=== PATIENT | male | born 1950 | race Caucasian/White ===

== ENCOUNTER → 2016-12-02 | Outpatient (CLI) | payer BC ==
[~2016-12-02] VITALS: Ht 185.4 cm; Wt 110.3 kg
[~2016-12-02] MED LIST: AMLODIPINE PO; ASPI-232 PO; ATOR-24 PO; CEFAZOLIN 2000 MG/60 ML D5W 60 ML IV SCH; GLC/500 PO; HYDROCHLOROTHIAZIDE PO; LACTATED RINGER'S 1000ML 1,000 ML IV SCH; MULT-506 PO; NAPR1TAB9 PO; OLMESARTAN PO
[2016-12-02 08:33] VITALS: Ht 185.4 cm; Wt 110.3 kg
--- NOTE | 2016-12-02 09:07 | PAT Medication Instructions ---
Service Date Dec 02, 2016. Current Home Medication List Aspirin (Aspir-81), 1 TAB PO QAM Atorvastatin (Lipitor), 40 MG PO HS Metformin Hcl (Glucophage), 500 MG PO QAM Multivitamin (Multivitamin), 1 TAB PO QAM Naproxen (Aleve), 440 MG PO PRN [Olmesartan/Amlo/Hctz], 1 TAB PO QAM Medication Instructions For Your Scheduled Surgery Aspirin (Aspir-81), 1 TAB PO QAM (check with surgeon/cardiology for instructions ) Naproxen (Aleve), 440 MG PO PRN (check with surgeon for instructions) - Hold the following medications 48 hours prior to surgery: Metformin Hcl (Glucophage), 500 MG PO QAM - Hold the following medications the morning of surgery: [Olmesartan/Amlo/Hctz], 1 TAB PO QAM Multivitamin (Multivitamin), 1 TAB PO QAM - Take the following medications as scheduled the night before surgery: Atorvastatin (Lipitor), 40 MG PO HS If you have any questions please call us at [phone] (Nannette Galo PA-C) or [phone] or [phone]
[2016-12-02 09:47] LABS: URINE APPEARANCE CLEAR (CLEAR); URINE BILIRUBIN NEG (NEG); URINE COLOR YELLOW; URINE NITRITE NEG (NEG); URINE SPECIFIC GRAVITY 1.019 (1.000-1.030); UROBILINOGEN NEG (NEG); ZZUR CULT IF INDIC CLEAN CATCH NO
[2016-12-02 09:47] LABS: BASO % 0.5 %; BASO ABS # 0.05 K/uL (0-0.2); COMPLETE YES; EOS % 3.4 %; HEMATOCRIT 41.1 % (42-52); IG% 0.6 %; LYMPH ABS # 1.31 K/uL (1.2-3.4); MEAN CELL VOLUME 83.5 fL (80-100); MEAN CORPUSCULAR HEMOGLOBIN 28.5 pg (25-34); MEAN CORPUSCULAR HGB CONC 34.1 g/dl (32-36); NEUT % 74.5 %; PLATELET COUNT 223 K/uL (130-400); RED BLOOD COUNT 4.92 M/uL (4.7-6.1); WHITE BLOOD COUNT 10.08 K/uL (4.8-10.8)
[2016-12-02 09:50] LABS: MANUAL MICROSCOPIC REQUIRED? NO; REVIEW REQ? NO
[2016-12-02 09:56] LABS: INR 0.9 (0.9-1.1); PARTIAL THROMBOPLASTIN RATIO 0.9
[2016-12-02 10:23] LABS: BUN/CREATININE RATIO 17.4 (10-20); CALCIUM 8.6 mg/dl (8.5-10.1); CREATININE 1.1 mg/dl (0.60-1.40); POTASSIUM 3.9 mmol/L (3.5-5.1)
== END | disposition home or self-care (01) ==
LOC: C.LAB 11-28 08:00 → EDSTATUS 12-10 14:58
PROVIDERS: ATTEND Orthopaedic Surgery Sports Medicine
DX: Z01.818 Encounter for other preprocedural examination (principal)

== ENCOUNTER → 2016-12-10 | Outpatient (CLI) | payer BC ==
[~2016-12-10] MED LIST changes: -CEFAZOLIN 2000 MG/60 ML D5W 60 ML IV SCH; -LACTATED RINGER'S 1000ML 1,000 ML IV SCH
[2016-12-10 14:01] LABS: ESTIMATED AVERAGE GLUCOSE 237 mg/dl; HA1C FLAG Normal (Normal)
[2016-12-10 14:02] LABS: ALT/SGPT 52 U/L (12-78); AST/SGOT 51 U/L (15-37); BLOOD UREA NITROGEN 28 mg/dl (7-18); BUN/CREATININE RATIO 27.7 (10-20); CARBON DIOXIDE 29 mmol/L (21-32); CHLORIDE 104 mmol/L (98-107); GLUCOSE 93 mg/dl (70-99); SODIUM 140 mmol/L (136-145)
[2016-12-10 14:05] LABS: ALB/GLOB RATIO 1.2 (0.9-2); ALKALINE PHOSPHATASE 88 U/L (45-117)
== END | disposition home or self-care (01) ==
LOC: C.LABSPEC 12:07
PROVIDERS: ATTEND Family Medicine
DX: E11.9 Type 2 diabetes mellitus without complications (principal)